=== PATIENT | female | born 1980 ===

== ENCOUNTER 2020-10-01 20:42 | Emergency (ER) | payer SELFPAY ==
[~2020-10-01] VITALS: Ht 144.8 cm; Wt 68.9 kg
--- NOTE | 2020-10-01 21:20 | NUR ---
PATIENT AMBULATED TO BATHROOM WITH STEADY GAIT. IN NAD. VS REMAIN STABLE. IN HOSPITAL GOWN. CALL S[place] IN REACH. WILL CONTINUE TO MONITOR.\\ PATIENT REPORTS HAVING NO "SPOTTING" INBETWEEN USING BATHROOM. "I ONLY BLEED WHEN I USE THE BATHROOM AND THERE'S A LOT OF CLOTS. DENIES ABD PAIN/BACK PAIN/FLANK PAIN, DYSURIA
[2020-10-01 21:37] LABS: BASOPHILS % (AUTO) 1 % (0-1); EOSINOPHILS % (AUTO) 1 % (1-7); LYMPHOCYTES % (AUTO) 27 % (22-44); MEAN CORPUSCULAR HEMOGLOBIN 29.3 pg (27.0-34.8); MEAN CORPUSCULAR HGB CONC 33.6 g/dL (32.4-35.8); MEAN PLATELET VOLUME 8.3 fL (7.4-10.4); MONOCYTES % (AUTO) 4 % (2-9); NEUTROPHILS % (AUTO) 68 % (42-75); PLATELET COUNT 185 x10^3/uL (130-400); RED BLOOD COUNT 4.83 x10^6/uL (3.82-5.3); RED CELL DISTRIBUTION WIDTH 14.5 % (9.6-15.2)
[2020-10-01 21:40] LABS: MICROSCOPIC INDICATED
[2020-10-01 21:41] LABS: MD NO
[2020-10-01 21:45] LABS: ALBUMIN 3.5 g/dL (3.4-5.0); ANION GAP 7 mmol/L (5-15); CALCIUM 8.8 mg/dL (8.5-10.1); CHLORIDE 110 mmol/L (98-107); CREATININE 1.32 mg/dL (0.55-1.02)
--- NOTE | 2020-10-01 22:25 | NUR ---
PATIENT RESTING IN BED IN NAD. CALL S[place]NCHEZ IN REACH. SAFETY MAINTAINED.
--- NOTE | 2020-10-01 22:30 | NUR ---
PATIENT IN US
--- NOTE | 2020-10-01 23:16 | NUR ---
discharge instructions reviewed with patient. no further questions at this time. in NAD. VS remain stable. denies pain at this time. all personal belongings with patient on dc. steady gait to lobby. No IV placed on this visit
[2020-10-01 23:17] VITALS: BP 126/66
--- NOTE | 2020-10-01 23:20 | NUR ---
prescription handed directly to patient
== END 2020-10-01 23:30 | disposition home or self-care (01) ==
LOC: ED 21:50
DX: O20.0 Threatened abortion (principal); Z3A.01 Less than 8 weeks gestation of pregnancy
CPT/HCPCS: 36415; 76801; 80048; 81001; 82040; 84702; 85025; 86901; 87086; 99284

== ENCOUNTER 2020-10-03 11:10 | Emergency (ER) | payer SELFPAY ==
[~2020-10-03] VITALS: Ht 144.8 cm; Wt 68.4 kg
[2020-10-03 11:13] VITALS: BP 144/70
--- NOTE | 2020-10-03 12:09 | NUR ---
LAB AT BEDSIDE
[2020-10-03] MEDS ORDERED: ONDANSETRON ODT 4 MG PO ONE (12:30)
[2020-10-03] MEDS ORDERED: ONDANSETRON ODT 4 MG ONE (12:30)
[2020-10-03] MEDS ORDERED: ACETAMINOPHEN 500 MG TABLET ONE (12:30)
[2020-10-03] MEDS ORDERED: ACETAMINOPHEN 500 MG TABLET PO ONE (12:30)
== END 2020-10-03 13:16 | disposition home or self-care (01) ==
LOC: ED 11:40
DX: O03.4 Incomplete spontaneous abortion without complication (principal)
CPT/HCPCS: 36415; 84702; 99283; Q0162